=== PATIENT | male | born 1970 | race Two or more races ===

== ENCOUNTER 2018-03-01 08:02 | Outpatient (CLI) | payer OTHER ==
[~2018-03-01 08:02] MED LIST: LISINOPRIL10 MG
== END 2018-03-01 08:04 | disposition home or self-care (01) ==
LOC: SONOGRAMA 08:02
DX: E03.8 Other specified hypothyroidism (principal)

== ENCOUNTER 2020-08-27 08:00 | Outpatient (CLI) | payer OTHER | END 2020-08-27 08:30 | disposition home or self-care (01) | LOC: PPH VACUNA 08:00 | DX: Z23 Encounter for immunization (principal) ==

== ENCOUNTER 2020-09-25 13:50 | Emergency (ER) | payer OTHER ==
[~2020-09-25] VITALS: Ht 170.2 cm; Wt 112.5 kg
[2020-09-25] MEDS ORDERED: JANUMET 50-1,01 EACH PO (13:55)
[2020-09-25] MEDS ORDERED: ORPHENADRINE C100 MG PO (16:06)
[2020-09-25] MEDS ORDERED: KETO10TA2 PO (16:06)
== END 2020-09-25 16:42 | disposition home or self-care (01) ==
LOC: ER 13:50
DX: S33.5XXA Sprain of ligaments of lumbar spine, initial encounter (principal); X50.0XXA Overexertion from strenuous movement or load, initial encounter; Y93.89 Activity, other specified; Y92.89 Other specified places as the place of occurrence of the external cause; Y99.8 Other external cause status

== ENCOUNTER 2021-04-28 12:00 | Outpatient (CLI) | payer OTHER ==
[~2021-04-28 12:00] MED LIST changes: +JANUMET 50-1,01 EACH PO; +KETO10TA2 PO; +ORPHENADRINE C100 MG PO
== END 2021-04-28 12:30 | disposition home or self-care (01) ==
LOC: PPH VACUNA 12:00
PROVIDERS: ATTEND Emergency Medicine Pediatric Emergency Medicine
DX: Z23 Encounter for immunization (principal)

== ENCOUNTER → 2022-08-05 08:40 | Outpatient (CLI) | payer OTHER | END | disposition home or self-care (01) | LOC: LAB 08:40 | PROVIDERS: ATTEND Internal Medicine Endocrinology, Diabetes & Metabolism | DX: Z00.00 Encounter for general adult medical examination without abnormal findings (principal); E78.5 Hyperlipidemia, unspecified; E55.9 Vitamin D deficiency, unspecified; N39.0 Urinary tract infection, site not specified; R10.9 Unspecified abdominal pain; E11.9 Type 2 diabetes mellitus without complications ==

== ENCOUNTER → 2022-11-08 06:13 | Outpatient (CLI) | payer OTHER | END | disposition home or self-care (01) | LOC: LAB 06:13 | PROVIDERS: ATTEND Internal Medicine Endocrinology, Diabetes & Metabolism | DX: E11.65 Type 2 diabetes mellitus with hyperglycemia (principal); E78.00 Pure hypercholesterolemia, unspecified ==